=== PATIENT | male | born 1955 | race Caucasian/White ===

== ENCOUNTER 2017-08-02 20:07 | Emergency (ER) | payer SELFPAY ==
[~2017-08-02 20:07] MED LIST: LORTAB5 PO; NO
== END 2017-08-02 21:15 | disposition left against medical advice (07) | DRG 951 ==
LOC: ED 20:07 → LWOBS 21:15
DX: Z91.19 Patient's noncompliance with other medical treatment and regimen (principal)

== ENCOUNTER 2017-10-29 02:41 | Inpatient (IN) | payer SELFPAY ==
[~2017-10-29] VITALS: Ht 175.3 cm; Wt 88.5 kg
[2017-10-29] VITALS (12 sets, daily range): BP systolic 95–131; BP diastolic 63–80
--- NOTE | 2017-10-29 03:00 | NUR ---
BROUGHT STRAIGHT BACK TO ROOM 13
--- NOTE | 2017-10-29 03:10 | NUR ---
REFUSED GOWN. SEVERELY SWOLLEN RT. NIPPLE WITH SURROUNDING CELLULITS.
[2017-10-29 03:37] LABS: HEMATOCRIT 41.6 % (39.0-50.0); HEMOGLOBIN 14.7 g/dl (14.0-18.0); IMMATURE GRANULOCYTES 0.3 % (0.0-1.0); MEAN CELL VOLUME 94.5 fL CALC (80.0-100.0); MEAN CORPUSCULAR HGB 33.4 pG CALC (26.0-32.0); MEAN CORPUSCULAR HGB CONC 35.3 g/L CALC (32.0-36.0); NEUT# 5.55 thou/uL (1.82-7.42); RED BLOOD COUNT 4.4 mill/uL (4.70-6.10)
[2017-10-29 03:47] LABS: ACT PARTIAL THROMBO TIME 24.5 SECONDS (20.0-32.5); INTERNATIONAL NORMALIZED RATIO 0.9 RATIO (0.7-1.3)
--- NOTE | 2017-10-29 03:55 | NUR ---
PT. RESTING WITH EYES CLOSED AND SNORING RESPIRATIONS.
[2017-10-29 03:59] LABS: ALKALINE PHOSPHATASE 85 u/l (38-126); ANION GAP 19 (6-22 (CALC)); BILIRUBIN, TOTAL 0.5 mg/dL (0.0-1.4); BUN 15 mg/dL (8-23); BUN/CREATININE RATIO 19 (12-20 (CALC)); CARBON DIOXIDE 22 mmol/l (22-30); CHLORIDE 108 mmol/l (95-108); CREATININE 0.8 mg/dL (0.7-1.3); GFR > 60 ML/MIN (>=60 (CALC)); GFR FOR AFR.AMER. > 60 ML/MIN (>=60 (CALC)); POTASSIUM 3.8 mmol/l (3.5-5.1); SGOT/AST 48 u/l (19-48); SGPT/ALT 43 u/l (11-66); SODIUM 144 mmol/l (137-146); TOTAL PROTEIN 7.4 g/dL (6.3-8.2)
[2017-10-29 04:11] LABS: MYOGLOBIN 26 ng/mL (0 - 121)
--- NOTE | 2017-10-29 04:30 | NUR ---
PT. REMAINS HYPOTENSIVE. MADE AWARE. NEW ORDERS RECEIVED. WILL CONTINUEIV FLUIDS ORDERED.
--- NOTE | 2017-10-29 06:40 | NUR ---
PT ADMITTED TO ICU BED 1 VIA STRETCHER, PT STOOD OFF STRETCHER AND TRANSFERRED SELF TO BED WITH STRONG STEADY GAIT, ADMISSION ASSESSMENT COMPLETED, SEE INTERVENTIONS, LUNGS CLEAR RESP EVEN AND UNLABORED, ABND SOFT AND BS ACTIVE PT STATES LAST BM YESTERDAY, DENIES DIARRHEA OR CONSTIPATION, SKIN WARM DRY AND INTACT, EXCEPT R NIPPLE AREA, PER PT HE SCRATCHED IT ON METAL ABOUT 9-10 DAYS AGO, THOUGHT IT WAS GETTING BETTER THEN NOTICED THAT IT WAS GETTING MORE SENSITIVE/TENDER AND THEN IT WAS RED AND SWOLLEN. LAST PM HE WOKE UP DIAPHORETIC, EXTREMELY NAUSEOUS AND VOMITING, SO HE CAME INTO EMERGENCY ROOM, R NIPPLE IS EXTREMELY RED SWOLLEN AND FIRM, PHOTO OBTAINED, RED AREA DE-MARKATION LINE MARKED WITH SHARPIE, IV ACCESS IN LEFT HAND WITH IVF INFUSING AT 125ML/HR, GOOD ASPIRATE NOTED TO IV SITE, TELE READING SR RATE IN THE 70'S, BP STABLE SEE INTERVENTIONS, TEMP 98.9, PT HAD EPISODES OF HYPOTENSION IN ER (REASON FRO ADMIT TO ICU), B/P REMAINS STABLE AT THIS TIME, PT ORIENTED TO ROOM AND UNIT, SAFETY MEASURES INTRODUCED, ALL MONITORING EQUIPMENT EXPLAINED PRIOR TO APPLICATION, CALL ARAUJO WITHIN REACH, WILL CONTINUE TO MONITOR.
--- NOTE | 2017-10-29 07:30 | NUR ---
SET UP ASSIST PROVIDED FOR AM MEAL, VS REMAIN STABLE NO CHANGES NOTED TO DEMARCATION LINES, COMFORT MEASURES PROVIDED, PT ADMISTS TO BEING A SMOKER BUT DENIES NEED FOR NICOTINE PATCH.
--- NOTE | 2017-10-29 08:37 | NUR ---
PT DOZING INTERMITTENLY, OFFERS NO NEW COMPLAINTS, IVF CONTINUE AT PRESCRIBED RATE, WILL CONTINUE TO MONITOR
--- NOTE | 2017-10-29 09:20 | NUR ---
AWARE OF CONSULT.
--- NOTE | 2017-10-29 09:38 | NUR ---
PT DOZING INTERMITTENLY, SIGNIFICANT OTHER AT BEDSIDE
--- NOTE | 2017-10-29 11:02 | NUR ---
PT RESTING INBED, DOZING AT THIS TIME, VS REMAIN STABLE NO CHANGE IN DEMARCATION LINE, WILL CONTINUE TO MONITOR
--- NOTE | 2017-10-29 12:23 | NUR ---
PT AMBULATES TO BATHROOM WITH STRONG STEADY GAIT, TOLERATES ACTIVITY WELL, CALL ARUAJO WITHIN REACH
--- NOTE | 2017-10-29 12:26 | NUR ---
SOME YELLOW/GREEN PURULENT DRAINAGE NOTED AT RIGHT NIPPLE SITE, CULTURE OBTAINED, PT TOELRATED W/O INCIDENT.
--- NOTE | 2017-10-29 14:00 | NUR ---
INTO SEE PATIENT PER REQUEST, PLAN FOR NPO AFTER MIDNIGHT WITH SURGERY PLANNED FOR TOMORROW. PT AWARE OF PLAN OF CARE AND ALL QUESTIONS ANSWERED.
--- NOTE | 2017-10-29 14:45 | NUR ---
PT STOOD AND AM,BULAED TO WHEELCHAIR, TRANSFERRED TO MED SURG VIA WHEELCHAIR, SIGN OTHER WOTH PT AND AWARE OF NEW ROOM ASSIGNMENT
--- NOTE | 2017-10-29 14:52 | NUR ---
PT CAME FROM ICU VIA WHEELCHAIR BY CARLOS CAST. MARBLE MECHANIC HELPER IN ROOM FOR STAND BY ASSIST TO SCALE THEN TO BED.
--- NOTE | 2017-10-29 15:00 | NUR ---
ASSESSMENT DONE TELE IN PLACE. RESPS EVEN AND UNLABORED. RIGHT NIPPLE IS RED AND WARM TO THE TOUCH. PT IS REFUSING PAIN MEDICATIONS AT THIS TIME. NS INFUSING WELL. SAFETY PRECAUTIONS REINFORCED AND CALL LIGHT IN REACH.
--- NOTE | 2017-10-29 19:30 | NUR ---
PT RESTING IN SEMI-FOWLERS POSITION WITH FAMILY AT BEDSIDE. PT DENIES PAIN. RESP EVEN AND UNLABORED. LUNGS CLEAR BILAT. TELE IN PLACE. RED AREA ON RIGHT NIPPLE. NO CHANGES TO THE DEMARCATION LINES. ABD SOFT; ACTIVE BOWEL SOUNDS. PEDAL PULSES PALPATED BILAT. IV LH PATENT; NO REDNESS OR EDEMA NOTED. SAFETY PRECAUTIONS REINFOCED. FREQUENT ROUNDS MADE. CALL LIGHT WITHIN REACH.
[2017-10-30] VITALS (10 sets, daily range): BP systolic 111–120; BP diastolic 68–86
--- NOTE | 2017-10-30 00:10 | NUR ---
RESP EVEN AND UNLABORED; NO DISCOMFORT NOTED. TELE IN PLACE. IV PATENT; NO REDNESS OR EDEMA NOTED. CALL LIGHT WITHIN REACH.
--- NOTE | 2017-10-30 02:07 | NUR ---
PT WOKE, DENIES PAIN. RESP EVEN AND UNLABORED. IV PATENT; NO REDNESS OR EDEMA NOTED. PICTURE OBTAINED OF RIGHT BREAST FOR CHART. PT REMINDED OF NPO DIET. TELE IN PLACE. CALL LIGHT WITHIN REACH.
--- NOTE | 2017-10-30 04:15 | NUR ---
ASSESSMENT UNCHANGED. RESP EVEN AND UNLABORED. TELE IN PLACE. IV PATENT; NO REDNESS OR EDEMA NOTED. CALL LIGHT WITHIN REACH.
[2017-10-30 05:11] LABS: HEMATOCRIT 37.5 % (39.0-50.0); IMMATURE GRANULOCYTES 0.4 % (0.0-1.0); MEAN CELL VOLUME 96.6 fL CALC (80.0-100.0); MEAN CORPUSCULAR HGB 32.7 pG CALC (26.0-32.0); MEAN CORPUSCULAR HGB CONC 33.9 g/L CALC (32.0-36.0); NEUT# 6.2 thou/uL (1.82-7.42); RED BLOOD COUNT 3.88 mill/uL (4.70-6.10); RED CELL DISTRI WIDTH 13.3 % (11.5-15.5)
[2017-10-30 05:15] LABS: HEMOGLOBIN 12.7 g/dl (14.0-18.0)
[2017-10-30 05:19] LABS: ALBUMIN 3.2 g/dL (3.2-5.0); ALKALINE PHOSPHATASE 61 u/l (38-126); ANION GAP 14 (6-22 (CALC)); BILIRUBIN, TOTAL 0.4 mg/dL (0.0-1.4); BUN 11 mg/dL (8-23); BUN/CREATININE RATIO 15 (12-20 (CALC)); CARBON DIOXIDE 23 mmol/l (22-30); CHLORIDE 108 mmol/l (95-108); CREATININE 0.8 mg/dL (0.7-1.3); GFR > 60 ML/MIN (>=60 (CALC)); GFR FOR AFR.AMER. > 60 ML/MIN (>=60 (CALC)); SGOT/AST 17 u/l (19-48); SGPT/ALT 43 u/l (11-66); SODIUM 141 mmol/l (137-146)
[2017-10-30 05:22] LABS: TOTAL PROTEIN 5.8 g/dL (6.3-8.2)
--- NOTE | 2017-10-30 07:29 | NUR ---
spoke with coral escalera in or will not be until this afternoon before going to surgery.
--- NOTE | 2017-10-30 08:17 | NUR ---
PT IS RELAXING IN BED WITH NO DISTRESS NOTED. IV SITE IS FREE FROM REDNESS OR EDEMA. HR IS REG, PULSES ARE STRONG X4, ABD IS SOFT WITH ACTIVE BS. RIGHT BREAST IS RED AND ANGRY LOOKING. CONTINUE TO OSBERVE AND MONITOR.
--- NOTE | 2017-10-30 10:15 | NUR ---
PT WENT FOR AN US OF THE BREAST
--- NOTE | 2017-10-30 12:30 | NUR ---
PT IS RELAXING IN BED WAITING FOR THE SURGERY TO BEGIN AND END. AWARE THAT 1400 IS THE COMPUTER LABORATORY TECHNICIAN TIME. TOLD STAFF "IF THEY DON'T GET ME AT 1400 THEN I WILL LEAVE". EXPLAINED ABOUT THE CASES BEFORE HIM. CONTINUE TO OBSERVE AND MONITOR.
--- NOTE | 2017-10-30 12:41 | NUR ---
Drug Selected: Vancomycin Age: 62 years Weight: 88 kg Height: 69 in Gender: Male SCR: 0.8 mg/dl Dosing weight: 88 kg IBW: 70.70 kg CRCL (ml/min): 97.0 Give Vancomycin 1000 mg q8 hrs NEXT TROUGH WILL BE 10/30/17 @ 2579
--- NOTE | 2017-10-30 13:24 | NUR ---
WAITING FOR THE OR TIME
--- NOTE | 2017-10-30 14:10 | NUR ---
PT GOING TO OR VIA STRETCHER ACCOMPANIED BY STAFF
--- NOTE | 2017-10-30 16:30 | NUR ---
PT IS IN OR. CAME UP AT [id number]
--- NOTE | 2017-10-30 16:41 | NUR ---
PT ARRIVED FROM OR VIA STRETCHER ACCOMPANIED , IV SITE IS FREE FROM REDNESS OR EDEMA. DRESSING ON R BREAST IS CDI. PT HAS A LOW GRADE TEMP OF 99.3 WANTING FOOD AND DRINK, WANTS TO GO HOME LATER IF HE CAN.
--- NOTE | 2017-10-30 18:00 | NUR ---
PT WANTING TO GO SMOKE INFORMED UNABLE TO GO OFF THE UNIT. VERBALIZED UNDERSTANDING.
[2017-10-30] MEDS ORDERED: BACTRIM DS1 TAB PO (18:07)
[2017-10-30] MEDS ORDERED: HYDROCO/APAP1 T10 PO (18:07)
[2017-10-30] MEDS ORDERED: FLORASTOR250 M1 PO (18:08)
--- NOTE | 2017-10-30 19:05 | NUR ---
IV SITE DISCONTINUED. CATHETER INTACT. ALL DISCHARGE INSTRUCTIONS GIVEN AND VERBALIZED UNDERSTANDING. DRESSING SUPPLIES GIVEN. FAMILY IN THE ROOM.
--- NOTE | 2017-10-30 19:38 | NUR ---
PT LEFT VIA WC ACCOMPANIED BY STAFF. FAMILY WITH PT.
== END 2017-10-30 19:33 | disposition home or self-care (01) | DRG 601 ==
LOC: ED 02:41 → ED-I 05:41 → ED 05:59 → ICU 06:00 → MS2 14:52
PROVIDERS: Emergency Medicine; ADMIT Internal Medicine; ATTEND Internal Medicine
PROC: 0H9T0ZZ Drainage of Right Breast, Open Approach (ICD-10-PCS; principal; 2017-10-30)
DX: N61.1 Abscess of the breast and nipple (principal); I95.9 Hypotension, unspecified; R07.9 Chest pain, unspecified; R00.1 Bradycardia, unspecified; F17.210 Nicotine dependence, cigarettes, uncomplicated; W22.8XXA Striking against or struck by other objects, initial encounter; Y93.H3 Activity, building and construction; Y92.89 Other specified places as the place of occurrence of the external cause; Y99.0 Civilian activity done for income or pay